=== PATIENT | male | born 1990 | race Caucasian/White ===

== ENCOUNTER 2018-03-02 16:31 | Emergency (ER) | payer BC ==
[~2018-03-02] VITALS: Ht 170.2 cm; Wt 105.8 kg
[~2018-03-02 16:31] MED LIST: CLC100 PO; HYDR-5688 PO
[2018-03-02 16:34] VITALS: TEMP 36.7; Ht 170.2 cm; Wt 105.8 kg
[2018-03-02] MEDS ORDERED: SUMATRIPTAN SUCCINATE 6 MG/0.5 ML VIAL SQ STA (16:50)
[2018-03-02] MEDS ORDERED: MAGNESIUM SULFATE 1GM / D5W 1 GM BAG IV STA (16:50)
[2018-03-02] MEDS ORDERED: KETOROLAC TROMETHAMINE 30 MG/ML VIAL IV STA (16:50)
[2018-03-02] MEDS ORDERED: SODIUM CHLORIDE 0.9% 1000ML 1,000 ML IV STA (16:50)
[2018-03-02] MEDS ORDERED: IBUP-1050 PO (16:55)
[2018-03-02] MEDS ORDERED: ACET-1256 PO (16:55)
[2018-03-02 19:10] VITALS: BP 128/92; PULSE 66; O2SAT 99
--- NOTE | 2018-03-02 19:33 | EMERGENCY ROOM VISIT NOTE ---
History Report prepared by Austen: Mita Duran Under the Supervision of: Dr. Yemi Anderson M.D. First contact with patient: 16:40 Chief Complaint: HEADACHE Stated Complaint: HEADACHES History of Present Illness The patient is a 27 year old male who presents to the Emergency Room with complaints of a persistent headache that started 1.5 weeks ago. The patient rates his pain a 7/10 in severity. He describes the pain as "throbbing" and states it worsens with exposure to light. He reports last week the pain was in the back of his head but last night into today the pain has radiated to the back of his eyes. He notes this has caused him to have blurry vision. He reports he has tried taking Aleve, Motrin, and Tylenol with no relief. He notes he last took 4 Tylenol around 0730 this morning. The patient states he has had migraines before but has not had one in the last 2 years. He denies any recent falls or bites that he is aware of. He also denies fevers, numbness, or weakness. He reports he had an episode of vomiting this morning. The patient notes he had a cervical fusion a couple months ago and has experienced more headaches since then. Source of History: patient Onset: 1.5 weeks ago Position: head Symptom Intensity: 7/10 Quality: other (throbbing) Timing: other (persistent) Modifying Factors (Worsening): other (exposure to light) Associated Symptoms: + vomiting, No fevers, No weakness, No numbness Note: Additional symptoms: blurry vision. Review of Systems See HPI for pertinent positives & negatives. A total of 10 systems reviewed and were otherwise negative. Past Medical & Surgical Medical Problems: (1) Acute appendicitis (2) Hypertension (3) Pneumonia Family History Diabetes mellitus FH: cancer FH: hypertension FH: lung disease FHx: kidney disease Heart disease Social History Smoking Status: Never Smoker Alcohol Use: occasionally Drug Use: none Marital Status: in relationship Housing Status: lives with significant other Occupation Status: employed Current/Historical Medications Scheduled Acetaminophen (Tylenol), 2,000 MG PO UD Ibuprofen (Advil), 800 MG PO UD Allergies Coded Allergies: No Known Allergies (Unverified , 03/02/18) Physical Exam Vital Signs Date Time Temp Pulse Resp B/P (MAP) Pulse Ox O2 Delivery O2 Flow Rate FiO2 03/02/18 19:10 66 18 128/92 99 Room Air 03/02/18 18:31 61 18 130/77 99 Room Air 03/02/18 16:34 36.7 84 18 134/87 98 Room Air Physical Exam Constitutional: Vital signs reviewed. Eyes: Pupils are equal round reactive to light. Conjunctiva are noninjected. ENT: Pharynx is clear without erythema or exudate. Mucous membranes are moist. Neck supple without meningeal signs. Respiratory: Clear to auscultation bilaterally. Breath sounds are equal bilaterally. Cardiovascular: Regular rate and rhythm. No rubs or gallops. GI: Soft, nondistended and nontender. Bowel sounds are present. Musculoskeletal: No peripheral edema. No lower extremity tenderness. Integumentary: No cyanosis. Neurological: The patient is awake and alert. Cranial nerves II-XII are intact. Motor is 5 out of 5 all extremities. Sensation is intact to light touch all extremities. Normal speech. No pronator drift. Psychiatric: Normal affect. Medical Decision & Procedures Medications Administered Medications (Trade) Dose Ordered Sig/Rene Route Start Time Stop Time Status Last Admin Dose Admin Sumatriptan Succinate (Imitrex Sq Inj) 6 mg NOW STAT SQ 03/02/18 16:50 03/02/18 16:52 DC 03/02/18 17:16 6 MG Sodium Chloride 1,000 ml @ 999 mls/hr Q1H1M STAT IV 03/02/18 16:50 03/02/18 17:50 DC 03/02/18 17:15 999 MLS/HR Ketorolac Tromethamine (Toradol Inj) 10 mg NOW STAT IV 03/02/18 16:50 03/02/18 16:52 DC 03/02/18 17:16 10 MG Magnesium Sulfate (Magnesium Sulfate 1gm / D5W) 1 gm NOW STAT IV 03/02/18 16:50 03/02/18 16:52 DC 03/02/18 17:17 1 GM ED Course 1640: The patient was evaluated in room C1B. A complete history and physical exam was performed. 1650: Ordered Magnesium Sulfate 1 gm IV, Toradol Inj 10 mg IV, Sodium Chloride 1000 ml @ 999 mls/hr IV, Sumatriptan Succinate 6 mg SQ. 1805: The patient reports he is feeling significantly better already and he not requiring any additional pain medications. 1825: I checked on the patient and he is significantly better. Still waiting for magnesium to infuse. 192: Upon reevaluation, the patient appeared to have improvement of his symptoms. I discussed tonight's findings with him. He verbalized agreement of the treatment plan. He was discharged home. Medical Decision This is a 27-year-old male presents with a headache gnosis includes migraine headache, tension headache, intracranial mass, intracranial hemorrhage, meningitis. I did perform a limited focused review of portions of the patient' s old chart on the electronic medical record. The patient has had no recent pertinent visits to this hospital. I did evaluate the patient as noted above. Patient is presenting with a headache for about 10 days. Currently it is behind his eyes and he has worsening pain with bright lights. He states he has prior history of migraines. He has had no fevers or neurologic deficit or any history of trauma to suggest an acute intracranial process such as bleed or meningitis. IV access was established. I did treat the patient with Imitrex subcu as well as Toradol IV and normal saline IV. I did reassess the patient. He states that he is feeling significantly better. He was given IV magnesium as well. He was advised to follow-up closely with his doctor and discharged in good condition. Medication Reconcilliation Current Medication List: was personally reviewed by me Blood Pressure Screening Patient's blood pressure: Elevated blood pressure Blood pressure disposition: Referred to PCP Impression Primary Impression: Headache Scribe Attestation The scribe's documentation has been prepared under my direct and personally reviewed by me in its entirety. I confirm that the note above accurately reflects all work, treatment, procedures, and medical decision making performed by me. Departure Information Dispostion Home / Self-Care Referrals No Doctor, Assigned (PCP) Patient Instructions My [facility] Additional Instructions You have been examined and treated today on an emergency basis only. This is not a substitute for, or an effort to provide, complete comprehensive medical care. It is impossible to recognize and treat all injuries or illnesses in a single emergency department visit. It is therefore important that you follow up closely with your physician. Call as soon as possible for an appointment. Return for worsening symptoms or if you develop fever, numbness or weakness on one side of your body, difficulties with your speech or walking, or any other concerning symptoms. Problem Qualifiers Primary Impression: Headache Headache type: unspecified Headache chronicity pattern: acute headache Intractability: not intractable Qualified Codes: R51 - Headache
== END 2018-03-02 19:30 | disposition home or self-care (01) ==
LOC: C.EDB 16:32 → C.EDC 19:30
DX: R51 Headache (principal); H53.8 Other visual disturbances; I10 Essential (primary) hypertension

== ENCOUNTER 2018-03-27 07:52 | Emergency (ER) | payer BC ==
[~2018-03-27] VITALS: Ht 170.2 cm; Wt 107.4 kg
[~2018-03-27 07:52] MED LIST changes: +ACET-1256 PO; -CLC100 PO; -HYDR-5688 PO; +IBUP-1050 PO
[2018-03-27 07:56] VITALS: TEMP 36.7; Ht 170.2 cm; Wt 107.4 kg
[2018-03-27] MEDS ORDERED: KETOROLAC TROMETHAMINE 30 MG/ML VIAL IV STA (08:02)
[2018-03-27] MEDS ORDERED: SUMATRIPTAN SUCCINATE 6 MG/0.5 ML VIAL SQ STA (08:02)
[2018-03-27] MEDS ORDERED: PROCHLORPERAZINE 5 MG/ML 2 ML VIAL IV STA (08:02)
[2018-03-27] MEDS ORDERED: ASPI-390 PO (08:15)
--- NOTE | 2018-03-27 08:53 | EMERGENCY ROOM VISIT NOTE ---
History Report prepared by Austen: Conner Chun Under the Supervision of: Dr. Tyson Julien D.O. First contact with patient: 08:02 Chief Complaint: HEADACHE Stated Complaint: MIGRAINE History of Present Illness The patient is a 27 year old male who presents to the Emergency Room with complaints of a constant migraine beginning last night. The patient states that he has had a headache for the last few days that worsened and turned into a migraine last night. He notes that his headache is behind his eyes, and then comes around the left side of his head into the back of his head. He reports that he has been getting migraines more frequently since August,. The patient states that he had a cervical fusion done at that time and has been getting 1-2 migraines a month since. He denies any nausea. Source of History: patient Onset: last night Position: head Quality: other (migraine) Timing: constant Associated Symptoms: No nausea Review of Systems See HPI for pertinent positives & negatives. A total of 10 systems reviewed and were otherwise negative. Past Medical & Surgical Medical Problems: (1) Acute appendicitis (2) Hypertension (3) Migraine (4) Pneumonia Surgical Problems: (1) History of appendectomy Family History Diabetes mellitus FH: cancer FH: hypertension FH: lung disease FHx: kidney disease Gallbladder disease Heart disease Social History Smoking Status: Never Smoker Alcohol Use: occasionally Drug Use: none Marital Status: Housing Status: lives with family Occupation Status: employed Current/Historical Medications Scheduled Jectwsw-Qdhcoasvwtpri-Ziiipobw (Excedrin Migraine), 1 TAB PO Q4H Sumatriptan Succinate (Imitrex), 25 MG PO PRN Allergies Coded Allergies: No Known Allergies (Unverified , 03/27/18) Physical Exam Vital Signs Date Time Temp Pulse Resp B/P (MAP) Pulse Ox O2 Delivery O2 Flow Rate FiO2 03/27/18 07:56 36.7 76 18 144/79 99 Room Air Physical Exam CONSTITUTIONAL/VITAL SIGNS: Reviewed / noted above. GENERAL: Non-toxic in appearance. INTEGUMENTARY: Warm, dry, and [place]. HEAD: Normocephalic. EYES: without scleral icterus or trauma. ENT/OROPHARYNX: clear and moist. LYMPHADENOPATHY/NECK: Is supple without lymphadenopathy or meningismus. RESPIRATORY: Lungs clear and equal. CARDIOVASCULAR: Regular rate and rhythm. GI/ABDOMEN: Soft and nontender. No organomegaly or pulsatile mass. No rebound or guarding. Normal bowel sounds. EXTREMITIES: Warm and well perfused. BACK: No CVA tenderness. NEUROLOGICAL: Intact without focal deficits. PSYCHIATRIC: normal affect. MUSCULOSKELETAL: Normally developed with good muscle tone. Medical Decision & Procedures Medications Administered Medications (Trade) Dose Ordered Sig/Rene Route Start Time Stop Time Status Last Admin Dose Admin Ketorolac Tromethamine (Toradol Inj) 30 mg NOW STAT IV 03/27/18 08:02 03/27/18 08:06 DC 03/27/18 08:23 30 MG Prochlorperazine Edisylate (Compazine Inj) 10 mg NOW STAT IV 03/27/18 08:02 03/27/18 08:06 DC 03/27/18 08:21 10 MG Sumatriptan Succinate (Imitrex Sq Inj) 6 mg NOW STAT SQ 03/27/18 08:02 03/27/18 08:06 DC 03/27/18 08:24 6 MG ED Course 0801: Previous medical records were reviewed. The patient was evaluated in room B10. A complete history and physical examination was performed. 0802: Sumatriptan Succinate 6mg SQ, Compazine Inj 10mg IV, Toradol Inj 30mg IV 0855: On reevaluation, the patient is stable. I discussed the results and findings with the patient. He verbalized agreement of the treatment plan. The patient was discharged home. Medical Decision Differential includes: Acute intracranial bleed, trauma, meningitis, encephalitis, increased intracranial pressure, mass or mass effect, facial or dental infection, temporal arteritis, CVA, TIA, acute hypertensive emergency, sinusitis, carbon monoxide exposure. This is a 27-year-old male who presents to the ED with a chief complaint of a migraine headache. The patient reports a history of migraines. He was seen here previously for this and his symptoms improved after Imitrex and Toradol. The patient today reports a mostly left-sided headache that radiates behind the left eye. He denies any fevers or trauma. He states this feels similar to previous migraines. He states that he does get a couple of migraines per month. He has not seen his PCP or a neurologist for this yet. The patient denies any focal neurologic deficits. He states that this headache was gradual onset over the past couple of days but became a migraine yesterday. The patient has no other complaints. His physical exam and neurologic exam was normal. He was treated with IV Toradol and IV Compazine as well as subcu Imitrex. The patient was felt to be stable for discharge. He was given a prescription for oral Imitrex. Medication Reconcilliation Current Medication List: was personally reviewed by me Blood Pressure Screening Patient's blood pressure: Elevated blood pressure Blood pressure disposition: Elevated BP felt to be situational Impression Primary Impression: Migraine Scribe Attestation The scribe's documentation has been prepared under my direction and personally reviewed by me in its entirety. I confirm that the note above accurately reflects all work, treatment, procedures, and medical decision making performed by me. Departure Information Dispostion Home / Self-Care Prescriptions Sumatriptan Succinate (Imitrex) 25 Mg Tab 25 MG PO PRN for Headache, #10 TAB Prov: Tyson Julien D.O. 03/27/18 Referrals No Doctor, Assigned (PCP) Forms HOME CARE DOCUMENTATION FORM, IMPORTANT VISIT INFORMATION Patient Instructions My [facility] Additional Instructions Take Imitrex as needed for migraine headaches. Follow-up with your doctor for further care and evaluation in 1-7 days. Return to the emergency department for worsening or new symptoms or any concerns. You have been examined and treated today on an emergency basis only. This is not a substitute for, or an effort to provide, complete comprehensive medical care. It is impossible to recognize and treat all injuries or illnesses in a single emergency department visit. It is therefore important that you follow up closely with your doctor. Call as soon as possible for an appointment.
[2018-03-27] MEDS ORDERED: SUMA25TA12 PO (09:04)
[2018-03-27 09:25] VITALS: BP 115/64; PULSE 75; O2SAT 99
== END 2018-03-27 09:26 | disposition home or self-care (01) ==
LOC: C.EDB 07:54
DX: G43.909 Migraine, unspecified, not intractable, without status migrainosus (principal); Z98.1 Arthrodesis status; I10 Essential (primary) hypertension; Z87.01 Personal history of pneumonia (recurrent); Z83.3 Family history of diabetes mellitus; Z80.9 Family history of malignant neoplasm, unspecified; Z82.49 Family history of ischemic heart disease and other diseases of the circulatory system; Z83.6 Family history of other diseases of the respiratory system; Z84.1 Family history of disorders of kidney and ureter; Z83.79 Family history of other diseases of the digestive system; Z79.899 Other long term (current) drug therapy